=== PATIENT | female | born 1940 | race Caucasian/White ===

== ENCOUNTER → 2020-06-21 | Day surgery (SDC) | payer MEDICARE, OTHER ==
[~2020-06-21] MED LIST: LIDOCAINE 1% INJ 20 ML 20 ML VIAL ONE
[2020-06-21 11:33] VITALS: BP 188/82
--- NOTE | 2020-06-21 12:43 | Cardiac Procedure Note-CS/ASA ---
Pre-Procedure Note Pre-Op Procedure Note H&P Reviewed The H&P was reviewed, patient examined and no changes noted. Date H&P Reviewed: Jun 21, 2020 Time H&P Reviewed: 12:20 Conscious Sedation Pre-Proced Time 12:20 ASA Score 3 For ASA 3 and 4: Consider anesthesia and medical clearance. Also, for patients with a history of failed moderate sedation consider anesthesia. Airway Lungs Heart ASA score ASA 1: a normal healthy patient ASA 2: a patient with a mild systemic disease (mid diabetes, controlled hypertension, obesity ASA 3: a patient with a severe systemic disease that limits activity (angina, COPD, prior Myocardial infarction) ASA 4: a patient with an incapacitating disease that is a constant threat to life (CHF, renal failure) ASA 5: a moribund patient not expected to survive 24 hrs. (ruptured aneurysm) ASA 6: a declared brain- patient whose organs are being harvested. For emergent operations, add the letter E after the classification Mallampati Classification Grade 2 Sedation Plan Analgesia, Amnesia, Plan communicated to team members, Discussed options with patient/fam, Discussed risks with patient/fam The patient is an appropriate candidate to undergo the planned procedure, sedation, and anesthesia. The patient immediately re-assessed prior to indication. PATTY HOLBROOK MD FACP FAC CCDS Jun 21, 2020 12:43
--- NOTE | 2020-06-21 18:20 | OPERATIVE REPORT ---
DATE OF SERVICE: 06/21/2020 PREOPERATIVE DIAGNOSIS: Cryptogenic stroke. POSTOPERATIVE DIAGNOSIS: Cryptogenic stroke. PROCEDURE PERFORMED: Implantable loop recorder implantation. INDICATIONS FOR PROCEDURE: The patient is a 80-year-old lady, who has had multiple strokes in the past five or six years, based on serial CT scans of the head. Atrial fibrillation as the source of the stroke is a concern. Implantable loop recorder implantation was carried out today after having obtained an informed consent. DESCRIPTION OF PROCEDURE: [facility] The left prepectoral area was prepared and draped in the usual sterile fashion. Lidocaine 1% was used for local anesthesia and the tools provided with the Medtronic Reveal LINQ device were used to make a subcutaneous pocket anterior to the fourth intercostal space on the left side and the device was placed in the pocket and the skin edges were closed using Dermabond and Steri-Strips. She tolerated the procedure well. The device is a Medtronic Reveal LINQ and its serial number is [id number]. Job ID: [id number] DocumentID: [id number] Dictated Date: 06/21/2020 12:46:59 Auxiliary Engineer Date: 06/21/2020 18:19:39 Dictated By: PATTY HOLBROOK MD, MA, FACP, FACC,
== END ==
LOC: CATH 10:59
PROVIDERS: ATTEND Internal Medicine Cardiovascular Disease
DX: I63.9 Cerebral infarction, unspecified (principal); R53.83 Other fatigue; Z88.2 Allergy status to sulfonamides; Z88.5 Allergy status to narcotic agent; Z88.8 Allergy status to other drugs, medicaments and biological substances; Z80.9 Family history of malignant neoplasm, unspecified
CPT/HCPCS: 33285; 93306; C1764

== ENCOUNTER 2021-11-11 05:42 | Emergency (ER) | payer MEDICARE, OTHER ==
--- NOTE | 2021-11-11 06:11 | ED Upper Extremity ---
General Chief Complaint: Trauma-Non Activation Stated Complaint: ARM PAIN Nursing Triage Note: Pt was going to the bathroom and tripped on her pants and fell. Pt brought in by ems with the complaint of left shoulder pain. Pt is alert and oriented on arrival. Source: patient Exam Limitations: no limitations History of Present Illness Date Seen by Provider: Nov 11, 2021 Time Seen by Provider: 06:00 Initial Comments Patient is an 81-year-old female arriving by EMS who presents with fall from standing with left shoulder injury/deformity. Patient tripped prior to ED arrival. She denies hitting her head. She denies headache loss of consciousness and neck pain. She denies chest pain and shortness of breath. Patient has isolated left proximal humerus pain/tenderness with subtle deformity. She is able to extend there and wrist. No elbow forearm pain. Patient takes daily aspirin but is not on anticoagulation therapy. No other symptoms or complaints. Onset: just prior to arrival Severity: moderate Pain/Injury Location: left shoulder Method of Injury: fell Modifying Factors: Improves With Other Allergies and Home Medications Allergies Coded Allergies: Sulfa (Sulfonamide Antibiotics) (Unverified Allergy, Unknown, 11/11/21) Patient Home Medication List Home Medication List Reviewed: No Review of Systems Constitutional: see HPI Musculoskeletal: see HPI Past Xedpclz-Trnykk-Fnuaoe Hx Patient Social History Tobacco Use?: No Use of E-Cig and/or Vaping dev: No Substance use?: No Alcohol Use?: No Pt feels they are or have been: No Physical Exam Vital Signs Vital Signs - First Documented 11/11/21 05:45 Temp 36.5 Pulse 64 Resp 18 B/P (MAP) 138/67 (90) Pulse Ox 96 O2 Delivery Room Air Capillary Refill : Less Than 3 Seconds Height, Weight, BMI Height: '" Weight: lbs. oz. kg; BMI Method: General Appearance: WD/WN, no apparent distress Elbow/Forearm: Left, asymmetry, deformity (Left proximal humerus), limited ROM, soft tissue tenderness Wrist: Yes normal inspection, Yes non-tender Hand: normal inspection, non-tender Neurologic/Psychiatric: no motor/sensory deficits Progress/Results/Core Measures Results/Orders My Orders Orders - FRANKY HOANG DO Shoulder 2 View Left (11/11/21 06:01) Fentanyl Inj (Sublimaze Injection) (11/11/21 06:15) Ondansetron Injection (Zofran Injectio (11/11/21 06:15) Humerus 2 View Left (11/11/21 06:03) Vital Signs/I&O 11/11/21 11/11/21 05:45 05:45 Temp 36.5 36.5 Pulse 64 64 Resp 18 18 B/P (MAP) 138/67 (90) 138/67 (90) Pulse Ox 96 96 O2 Delivery Room Air Blood Pressure Mean: 90 Departure Communication (Admissions) Left shoulder/humerus x-rays: Oblique proximal humerus fracture Displaced oblique proximal humeral fracture without neurovascular benefit. Patient placed in a long posterior arm splint with sling. Pain addressed. Patient instructed follow-up with local orthopedic physician of their choice. Dr. Ray referral provided Impression Primary Impression: Closed left humeral fracture Disposition: HOME, SELF-CARE Condition: Stable Departure-Patient Inst. Decision time for Depature: 06:18 Referrals: RENARD CARBAJAL MD (PCP/Family) Primary Care Physician CASSIE RAY MD Patient Instructions: Upper Arm Fracture Add. Discharge Instructions: Acacia was evaluated in the emergency department for an upper arm fracture. This will require require orthopedic follow-up for reevaluation next week. You may follow-up with the orthopedic surgeon of your choice. Images have been uploaded to [facility]. Alternatively, you may follow-up with Dr. Ray on-call for [facility]. You may take hydrocodone as needed for pain relief. Return to the ED if new or worsening symptoms. All discharge instructions reviewed with patient and/or family. Voiced understanding. Scripts Hydrocodone/Acetaminophen (Hydrocodone-Acetamin 5-325 mg) 5 Mg-325 Mg Tablet 1 TAB PO Q4H PRN for PAIN-MODERATE (5-7), #10 TAB Prov: FRANKY HOANG DO 11/11/21 FRANKY HOANG DO Nov 11, 2021 06:11
[2021-11-11] MEDS ORDERED: fentaNYL INJ 100 MCG/2 ML AMP IVP PRN (06:15)
[2021-11-11] MEDS ORDERED: ONDANSETRON 4 MG/2 ML (SDV) Z0FRAN IVP ONE (06:15)
[2021-11-11] MEDS ORDERED: ACHD5005 PO (06:20)
[2021-11-11] MEDS ORDERED: HYDROcodone/APAP 5 MG/325 MG (LORTAB) TAB PO ONE (06:30)
[2021-11-11 06:45] VITALS: BP 138/67
--- NOTE | 2021-11-11 08:19 | Diagnostic Imaging Report ---
Indication: Fall with left shoulder pain. Comparison: None. Discussion: Single AP view of the left shoulder was obtained. There is a comminuted displaced fracture involving the proximal shaft of the left humerus. No dislocation. Mild degenerative disease noted within left shoulder. Soft tissue swelling. Impression: 1. Comminuted displaced left humeral proximal shaft fracture. Dictated by: Dictated on workstation # [id number]
--- NOTE | 2021-11-11 08:22 | Diagnostic Imaging Report ---
CLINICAL HISTORY: Fall. Left arm pain. COMPARISON: None. TECHNIQUE: Single view of the left humerus was obtained. FINDINGS: Comminuted fracture is visualized involving the proximal diaphysis of the left humerus. No focal osseous lesion is seen. IMPRESSION: 1. Comminuted fracture involving the proximal diaphysis of the left humerus. Dictated by: Dictated on workstation # [id number]
== END 2021-11-11 06:46 | disposition home or self-care (01) ==
LOC: EDUNIT# 05:42 → ER FS 06:01
DX: S42.202A Unspecified fracture of upper end of left humerus, initial encounter for closed fracture (principal); Z79.82 Long term (current) use of aspirin; Z28.310 Unvaccinated for COVID-19; W01.0XXA Fall on same level from slipping, tripping and stumbling without subsequent striking against object, initial encounter
CPT/HCPCS: 29105; 73030; 73060; 99284; A4565